=== PATIENT | male | born 1960 | race Caucasian/White ===

== ENCOUNTER 2022-12-01 08:52 | Day surgery (SDC) | payer OTHER ==
--- NOTE | 2022-12-01 08:10 | HP ---
DATE OF SURGERY: 12/01/2022 HISTORY OF PRESENT ILLNESS: The patient is a 62-year-old with no bloody stools. No change in bowel movements. No new pain. He has history of positive Cologuard. He has no prior colonoscopy. I feel he is in need of screening colonoscopy. Family history negative for colon cancer. PAST MEDICAL HISTORY: He denies any chronic illnesses. PAST SURGICAL HISTORY: Vasectomy. MEDICATIONS: Flonase allergy relief. ALLERGIES: NKDA. FAMILY HISTORY: Skin cancer. Negative for colon cancer. SOCIAL HISTORY: No smoking or alcohol abuse. REVIEW OF SYSTEMS: Fourteen systems reviewed. No chest pain or palpitations. Other systems negative or noncontributory as above and per preadmission questionnaire. PHYSICAL EXAMINATION: Height 5'6". BMI 22.6. GENERAL: No acute distress. HEENT: Sclerae nonicteric. EOMI. Oral mucous membranes moist. NECK: No JVD. CHEST: Equal excursion, nonlabored breathing. CVS: Regular rate and rhythm. ABDOMEN: Soft. No peritoneal signs. EXTREMITIES: No significant edema. NEURO: Alert, oriented, moving extremities symmetrically. RECTAL: Deferred timed to endoscopy exam. PSYCH: Appropriate mood and affect. SKIN: Dry. IMPRESSION: He is in need of follow up screening colonoscopy as he has not had a prior colonoscopy. He was shown the risk sheet, explained the procedure in detail including but not limited to risk of bleeding or infection, risk of bowel injury or perforation possibly requiring further procedure, risk of missed or nondiagnosis or incomplete exam possibly requiring barium enema, other studies or procedures, general risk of anesthesia or sedation, risk of bowel prep but not limited to, consent obtained. Will proceed with outpatient screening colonoscopy.
[2022-12-01] MEDS ORDERED: Lactated Ringers 1,000 ML IV ONE (09:18)
[2022-12-01] MEDS ORDERED: DIPRIVAN 200 MG/20 ML IV ONE ×2 (11:30→11:48)
[2022-12-01] MEDS ORDERED: Xylocaine-Mpf 2% 5 Ml Vial ONE (11:30)
[2022-12-01 12:35] VITALS: BP 113/69; PULSE 57; O2SAT 96
--- NOTE | 2022-12-01 13:07 | OP ---
SURGERY DATE/TIME: 12/01/2022 1131 PREOPERATIVE DIAGNOSIS: No prior colonoscopy. Needs screening colonoscopy. Question of positive Cologuard. POSTOPERATIVE DIAGNOSES: 1) ASA Class II. 2) Small polyps sigmoid and rectum. 3) Withdrawal time approximately 11 minutes. 4) Fair bowel prep. 5) Mild diverticulosis left colon. PROCEDURES: 1) Colonoscopy to cecum. 2) Hot biopsy removal of small raised lesion sigmoid colon. 3) Hot biopsy polypectomy small raised lesion sigmoid colon. 4) Hot biopsy polypectomy of small polyp sigmoid colon. 5) Hot biopsy polypectomy of two small early polyps versus hyperplastic lesion rectum x2 SURGEON: Dr. Kris Gomez. ANESTHESIA: MAC. ESTIMATED BLOOD LOSS: Minimal. INDICATIONS: As noted above. Risks and benefits explained in detail but not limited to and consent obtained. DESCRIPTION OF PROCEDURE AND FINDINGS: The patient is taken to the endoscopy room. MAC anesthesia induced. After official time out and no disagreement with planned procedure, digital rectal exam did not reveal any rectal masses. Video colonoscope inserted and passed up through the tortuous sigmoid, descending, transverse and ascending colon around to the cecum. Appendiceal orifice and valve well visualized and photo documented. Prep overall is fair with a little bit of liquidy semisolid stool this is suctioned irrigated out as clear as possible throughout the colon just slightly limiting the exam for small lesions. The scope is carefully withdrawn over the next 11 minutes. No signs of any signs of any large polyps, masses or obstructing lesion. Again, the right colon prep just slightly limited the exam for any large polyps, masses or obstructing lesion. The scope pulled back. The left colon had some small diverticula. In the sigmoid colon there was one small vague, raised lesion whether this is polypoid mucosa versus early polyp removed hot biopsy forceps. There was one that looked like more of a little polyp removed with hot biopsy polypectomy. Good hemostasis noted. Again, he did have some mild diverticulosis. In the rectum, there were two small early polyps versus hyperplastic lesions removed with hot biopsy polypectomy. Good hemostasis noted. Findings discussed with the family out in the waiting area. I will see him back in the office in week or so to go over results.
== END 2022-12-01 12:50 | disposition home or self-care (01) ==
LOC: SDC 08:52
PROVIDERS: ATTEND Surgery
DX: R19.5 Other fecal abnormalities (principal); D12.5 Benign neoplasm of sigmoid colon; K62.1 Rectal polyp; K57.30 Diverticulosis of large intestine without perforation or abscess without bleeding
CPT/HCPCS: J2704